=== PATIENT | female | born 1965 | race Caucasian/White ===

== ENCOUNTER 2017-01-04 20:33 | Emergency (ER) | payer MEDICAID ==
[2017-01-04] MEDS: IBUPROFEN 600 MG TABLET PO ONE (21:13)
--- NOTE | 2017-01-04 22:00 | Emergency Department Record ---
History of Present Illness - General Chief complaint: Extremity Problem Stated complaint: LEFT WRIST INJURY Time Seen by Provider: 01/04/17 20:50 Source: Patient Mode of Arrival: Ambulatory Limitations: No limitations - History of Present Illness Initial comments: pt was lifting something at work when her wrist snapped and became very painful. Complaint: Extremity pain, Joint pain Onset/Timin -: Minutes(s) Location: Left History of Same: No Radiation: Distal Severity scale (1-10): 10 Quality: Aching Consistency: Constant Improves with: Nothing Worsens with: Exertion, Palpation Associated Symptoms: Denies other symptoms - Related Data Home Medications Medication Instructions Recorded Confirmed Last Taken Pramipexole Di-HCl [Mirapex] 0.5 mg PO QHS PRN 01/29/15 01/04/17 Unknown Vitamin D 5,000 iu PO DAILY 03/09/15 01/04/17 01/04/17 Hydrochlorothiazide 25 mg PO QD tab 06/30/16 01/04/17 01/04/17 Phentermine HCl 37.5 mg PO QD cap 06/30/16 01/04/17 01/04/17 Venlafaxine HCl 150 mg PO DAILY tab 06/30/16 01/04/17 01/04/17 Cetirizine HCl [Zyrtec] 10 mg PO DAILY 01/04/17 01/04/17 01/04/17 Omeprazole/Sodium Bicarbonate 1 each PO DAILY 01/04/17 01/04/17 01/04/17 [Zegerid 20 mg Capsule] Allergies Allergy/AdvReac Type Severity Reaction Status Date / Time prochlorperazine maleate Allergy Severe SWELLING Unverified 09/22/16 19:41 [From Compazine] OF THE TONGUE acetaminophen [From Percocet] Allergy BEHAVIORAL Unverified 09/22/16 19:41 CHANGES oxycodone HCl [From Percocet] Allergy BEHAVIORAL Unverified 09/22/16 19:41 CHANGES adhesive tapes AdvReac Intermediate RASH Uncoded 07/05/16 13:51 Travel Screening - Travel/Exposure Within Last 30 Days Have you traveled within the last 30 days?: No Review of Systems Reviewed: No additional complaints except as noted below Constitutional: Reports: As per HPI. Denies: Chills, Fever, Malaise, Night sweats, Weakness, Weight change Eyes: Reports: As per HPI. Denies: Eye discharge, Eye pain, Photophobia, Vision change ENT: Reports: As per HPI. Denies: Congestion, Dental pain, Ear pain, Epistaxis , Hearing loss, Throat pain Respiratory: Reports: As per HPI. Denies: Cough, Dyspnea, Hemoptysis, Stridor, Wheezes Cardiovascular: Reports: As per HPI. Denies: Arrhythmia, Chest pain, Dyspnea on exertion, Edema, Murmurs, Orthopnea, Palpitations, Paroxysmal nocturnal dyspnea, Rheumatic Fever, Syncope Endocrine: Reports: As per HPI. Denies: Fatigue, Heat or cold intolerance, Polydipsia, Polyuria Gastrointestinal: Reports: As per HPI. Denies: Abdominal pain, Constipation, Diarrhea, Hematemesis, Hematochezia, Melena, Nausea, Vomiting Genitourinary: Reports: As per HPI. Denies: Abnormal menses, Discharge, Dyspareunia, Dysuria, Frequency, Hematuria, Incontinence, Retention, Urgency Musculoskeletal: Reports: As per HPI. Denies: Arthralgia, Back pain, Gout, Joint swelling, Myalgia, Neck pain Skin: Reports: As per HPI. Denies: Bruising, Change in color, Change in hair/ nails, Lesions, Pruritus, Rash Neurological: Reports: As per HPI. Denies: Abnormal gait, Confusion, Headache, Numbness, Paresthesias, Seizure, Tingling, Tremors, Vertigo, Weakness Psychiatric: Reports: As per HPI. Denies: Anxiety, Auditory hallucinations, Depression, Homicidal thoughts, Suicidal thoughts, Visual hallucinations Hematological/Lymphatic: Reports: As per HPI. Denies: Anemia, Blood Clots, Easy bleeding, Easy bruising, Swollen glands Past Medical History - SOCIAL HISTORY Smoking Status: Never smoker Alcohol Use: Rare Drug Use: None - RESPIRATORY Hx Respiratory Disorders: Yes Hx Asthma: Yes (EXERCISE INDUCED) - CARDIOVASCULAR Hx Cardio Disorders: Yes Hx Edema: Yes (has edema ryanne ankles norm for her) - NEURO Hx Neuro Disorders: Yes Hx of Migraines: Yes (past) - GI Hx GI Disorders: Yes Hx Reflux: Yes Comment:: HX IBS AND HEMORRHOIDS - Hx Genitourinary Disorders: Yes Comment:: stress incontinence - ENDOCRINE Hx Endocrine Disorders: No Comment:: STATES PREDIABETES - MUSCULOSKELETAL Hx Musculoskeletal Disorders: Yes Comment:: RLS - PSYCH Hx Psych Problems: Yes Hx Anxiety: Yes Hx Depression: Yes - HEMATOLOGY/ONCOLOGY Hx Hematology/Oncology Disorders: Yes Hx Bruising: Yes (easily) Family Medical History Any Significant Family History?: Yes Hx Cancer: Father, Mother Hx Heart Disease: Father, Mother Hx Resp Disorders: Father, Mother Physical Exam - General General Appearance: Alert, Oriented x3, Cooperative, Mild distress - Head Head exam: Normal inspection - Eye Eye exam: Normal appearance, PERRL, EOMI Pupils: Normal accommodation - ENT ENT exam: Normal exam, Mucous membranes moist, Normal external ear exam, Normal orophraynx Ear exam: Normal external inspection. negative: External canal tenderness Nasal Exam: Normal inspection. negative: Discharge, Sinus tenderness Mouth exam: Normal external inspection, Tongue normal Teeth exam: Normal inspection. negative: Dental caries Throat exam: Normal inspection. negative: Tonsillar erythema, Tonsillar exudate - Neck Neck exam: Normal inspection, Full ROM. negative: Tenderness - Respiratory Respiratory exam: Normal lung sounds bilaterally. negative: Respiratory distress - Cardiovascular Cardiovascular Exam: Regular rate, Normal rhythm, Normal heart sounds - GI/Abdominal GI/Abdominal exam: Soft, Normal bowel sounds. negative: Tenderness - Rectal Rectal exam: Deferred - exam: Deferred - Extremities Extremities exam: Normal capillary refill, Tenderness. negative: Full ROM - Back Back exam: Reports: Normal inspection, Full ROM. Denies: Muscle spasm, Rash noted, Tenderness - Neurological Neurological exam: Alert, CN II-XII intact, Normal gait, Oriented X3 - Psychiatric Psychiatric exam: Normal affect, Normal mood - Skin Skin exam: Dry, Intact, Normal color, Warm Course Vital Signs 01/04/17 20:39 Temperature 97.9 F Pulse Rate [ 80 Pulse Ox Probe] Respiratory 20 Rate Blood Pressure 140/88 [Right Arm] Pulse Ox 99 Disposition Disposition: Discharge Clinical Impression: Left wrist sprain Qualifiers: Encounter type: initial encounter Qualified Code(s): S63.502A - Unspecified sprain of left wrist, initial encounter Disposition: Home, Self-Care Condition: (1) Good Instructions: Wrist Sprain (ED) Additional Instructions: follow up with family doctor. ice and elevate. return sooner if worse. motrin with food Forms: Patient Portal Access
--- NOTE | 2017-01-05 14:15 | RADIOLOGY REPORT ---
EXAM: LEFT WRIST, FOUR VIEWS HISTORY: LIFTING INJURY AUDIBLE POP LEFT WRIST. DIFFUSE LEFT WRIST PAIN. TECHNIQUE: Four views of the left wrist were obtained. Comparison: None. Encounter: Initial. FINDINGS: No acute fracture or dislocation. Ulnar neutral variance. Pronator fat pad is preserved. IMPRESSION: NEGATIVE LEFT WRIST EXAMINATION. JOB NUMBER: [id number] MTDD
== END 2017-01-04 22:25 | disposition home or self-care (01) ==
LOC: ER 20:33
DX: S63.502A Unspecified sprain of left wrist, initial encounter (principal); X50.0XXA Overexertion from strenuous movement or load, initial encounter; Y92.512 Supermarket, store or market as the place of occurrence of the external cause; Y99.0 Civilian activity done for income or pay
CPT/HCPCS: 99283

== ENCOUNTER 2017-02-19 20:03 | Emergency (ER) | payer MEDICAID ==
--- NOTE | 2017-02-19 20:24 | Emergency Department Record ---
History of Present Illness - General Chief complaint: Female Urogenital Problem Stated complaint: UTI Time Seen by Provider: 02/19/17 20:20 Source: Patient Mode of Arrival: Ambulatory Limitations: No limitations - History of Present Illness Initial comments: The patient is here due to a 4 hour hx of dysuria. She denies any AP, nausea, vomiting, back pain or fever. Complaint: Dysuria Onset/Timin -: Hour(s) Worsens with: Urination - Related Data Home Medications Medication Instructions Recorded Confirmed Last Taken Pramipexole Di-HCl [Mirapex] 0.5 mg PO QHS PRN 01/29/15 01/04/17 Unknown Vitamin D 5,000 iu PO DAILY 03/09/15 01/04/17 01/04/17 Hydrochlorothiazide 25 mg PO QD tab 06/30/16 01/04/17 01/04/17 Phentermine HCl 37.5 mg PO QD cap 06/30/16 01/04/17 01/04/17 Venlafaxine HCl 150 mg PO DAILY tab 06/30/16 01/04/17 01/04/17 Cetirizine HCl [Zyrtec] 10 mg PO DAILY 01/04/17 01/04/17 01/04/17 Omeprazole/Sodium Bicarbonate 1 each PO DAILY 01/04/17 01/04/17 01/04/17 [Zegerid 20 mg Capsule] Previous Rx's Medication Instructions Recorded Nitrofurantoin Mellette [Macrobid] 100 mg PO BID #10 capsule 02/19/17 Allergies Allergy/AdvReac Type Severity Reaction Status Date / Time prochlorperazine maleate Allergy Severe SWELLING Unverified 09/22/16 19:41 [From Compazine] OF THE TONGUE oxycodone HCl [From Percocet] Allergy BEHAVIORAL Unverified 09/22/16 19:41 CHANGES adhesive tapes AdvReac Intermediate RASH Uncoded 07/05/16 13:51 Travel Screening - Travel/Exposure Within Last 30 Days Have you traveled within the last 30 days?: No - Travel Symptoms Symptom Screening: None Review of Systems Constitutional: Denies: Chills, Fever Eyes: Denies: Eye discharge ENT: Denies: Congestion Respiratory: Denies: Cough, Dyspnea Past Medical History - SOCIAL HISTORY Smoking Status: Never smoker - RESPIRATORY Hx Respiratory Disorders: Yes Hx Asthma: Yes (EXERCISE INDUCED) - CARDIOVASCULAR Hx Cardio Disorders: Yes Hx Edema: Yes (has edema ryanne ankles norm for her) - NEURO Hx Neuro Disorders: Yes Hx of Migraines: Yes (past) - GI Hx GI Disorders: Yes Hx Reflux: Yes Hx Irritable Bowel: Yes Comment:: HX IBS AND HEMORRHOIDS - Hx Genitourinary Disorders: Yes Comment:: stress incontinence - ENDOCRINE Hx Endocrine Disorders: No Comment:: STATES PREDIABETES - MUSCULOSKELETAL Hx Musculoskeletal Disorders: Yes Comment:: RLS - PSYCH Hx Psych Problems: Yes Hx Anxiety: Yes Hx Depression: Yes - HEMATOLOGY/ONCOLOGY Hx Hematology/Oncology Disorders: Yes Hx Bruising: Yes (easily) Family Medical History Any Significant Family History?: Yes Hx Cancer: Father, Mother Hx Heart Disease: Father, Mother Hx Resp Disorders: Father, Mother Physical Exam - General General Appearance: Alert, Oriented x3, Cooperative, No acute distress - Head Head exam: Atraumatic, Normocephalic, Normal inspection - Eye Eye exam: Normal appearance, PERRL - Neck Neck exam: Normal inspection, Full ROM. negative: Tenderness - Respiratory Respiratory exam: Normal lung sounds bilaterally. negative: Respiratory distress - Cardiovascular Cardiovascular Exam: Regular rate, Normal rhythm, Normal heart sounds - GI/Abdominal GI/Abdominal exam: Soft, Normal bowel sounds. negative: Tenderness - Back Back exam: Denies: CVA tenderness (R), CVA tenderness (L) Course Vital Signs 02/19/17 20:10 Temperature 98.5 F Pulse Rate [ 96 H Pulse Ox Probe] Respiratory 18 Rate Blood Pressure 143/96 [Left Arm] Pulse Ox 97 Medical Decision Making - Data Complexity MDM Data: Labs Ordered and/or Reviewed Disposition Disposition: Discharge Clinical Impression: UTI (urinary tract infection) Qualifiers: Urinary tract infection type: acute cystitis Hematuria presence: with hematuria Qualified Code(s): N30.01 - Acute cystitis with hematuria Disposition: Home, Self-Care Condition: (1) Good Instructions: Urinary Tract Infection in Women (ED) Additional Instructions: Please drink plenty of fluids. Take the Macrobid as directed. Please see your PCP if not better in 2 days and return to the ER for any pain, fever, or vomiting. Prescriptions: Nitrofurantoin Mellette [Macrobid] 100 mg PO BID #10 capsule Forms: Patient Portal Access Time of Disposition: 20:54 Quality - Quality Measures Quality Measures: N/A - Blood Pressure Screening View Details: Yes Blood Pressure Classification: Hypertensive Reading Systolic Measurement: 143 Diastolic Measurement: 96 Screening for High Blood Pressure: < Pre-Hypertensive BP, F/U Documented > [ [id number]] Pre-Hypertensive Follow-up Interventions: Follow-up with rescreen every year.
[2017-02-19 20:28] LABS: URINE BILIRUBIN SMALL (NEGATIVE); URINE BLOOD LARGE (NEGATIVE); URINE COLOR BROWN; URINE KETONE NEGATIVE (NEGATIVE); URINE LEUKOCYTE ESTERASE MODERATE (NEGATIVE); URINE NITRITE POSITIVE (NEGATIVE)
[2017-02-19 20:30] LABS: URINE PROTEIN 300 mg/dL (NEGATIVE)
[2017-02-19 20:31] LABS: URINE APPEARANCE CLOUDY
[2017-02-19 20:34] LABS: URINE BACTERIA 1+; URINE RBC >50 (NONE SEEN)
[2017-02-19] MEDS ORDERED: NITROFURANTOIN MONO 100 MG CAPSULE PO ONE (20:42)
== END 2017-02-19 21:06 | disposition home or self-care (01) ==
LOC: ER 20:03
DX: N30.01 Acute cystitis with hematuria (principal)
CPT/HCPCS: 81001; 99282